=== PATIENT | female | born 1960 | race Caucasian/White ===

== ENCOUNTER 2016-12-12 10:27 | Inpatient (IN) ==
[2016-12-12] MEDS ORDERED: ONDANSETRON 4 MG/2 ML VIAL IV PRN ×2 (11:00→15:23)
[2016-12-12] MEDS ORDERED: METOPROLOL TARTRATE 25 MG TABLET PO STA (11:00)
[2016-12-12] MEDS ORDERED: NITROGLYCERIN SL 0.4 MG TABLET SL PRN (11:00)
[2016-12-12] MEDS ORDERED: NITROGLYCERIN 2% OINT 1 INCH/GM PACK TOP STA (11:00)
[2016-12-12] MEDS ORDERED: MORPHINE 2 MG/1 ML SYRINGE IV PRN (11:00)
[2016-12-12] MEDS ORDERED: ENOXAPARIN 100 MG/ML SYRINGE SUBCUT STA (11:00)
[2016-12-12] MEDS ORDERED: ASPIRIN 325 MG TABLET PO STA (11:00)
--- NOTE | 2016-12-12 11:04 | EKG Report ---
Stationary ECG Study [facility] ER Test Date: 12/12/2016 10:36:28 AM Pat Name: DAVID BLACK Department: Room: Gender: F [employer] Hand: : 1960 Requested by: Ricky Esparza Order Number: [id number] Reading MD: ANISA SOTO Intervals [place] Rate: 83 P: 35 FL: 166 QRS: 51 QRSD: 110 T: 21 QT: 398 QTc: 437 Interpretive Statements SINUS RHYTHM T WAVE ABNORMALITY, POSSIBLE LATERAL ISCHEMIA Electronically Signed On 12-13-16 16:06:52 CDT by ANISA SOTO [email or web address]
[2016-12-12] MEDS ORDERED: ONDANSETRON 4 MG/2 ML VIAL ONE (11:15)
[2016-12-12] MEDS ORDERED: METOPROLOL TARTRATE 25 MG TABLET ONE (11:15)
[2016-12-12] MEDS ORDERED: ENOXAPARIN 100 MG/ML SYRINGE SUBCUT ONE (11:15)
[2016-12-12] MEDS ORDERED: NITROGLYCERIN 2% OINT 1 INCH/GM PACK TOP ONE (11:15)
[2016-12-12] MEDS ORDERED: MORPHINE 2 MG/1 ML SYRINGE ONE (11:15)
[2016-12-12 11:19] LABS: Basophils # 0.1 10*3/uL (0.0-0.2); Basophils % 0.6 % (0.0-0.8); Eosinophils # 0.1 10*3/uL (0.0-0.87); Eosinophils % 1.3 % (0.00-10.9); Hematocrit 37.8 VOL% (35.7-47.0); Hemoglobin 12.8 GM/DL (12.0-16.0); Immature Granulocytes % 0.4 %; Immature Granulocytes Absolute 0.04 #; Lymphocytes # 2.3 10*3/uL (1.4-4.0); Lymphocytes % 24.8 % (21.3-54.2); Mean Corpuscular HGB Conc 33.9 GM/DL (32-36); Mean Corpuscular Hemoglobin 32 PG (27-34); Mean Platelet Volume 12.7 FL (9.6-12.0); Monocytes # 0.7 10*3/uL (0.11-0.8); Monocytes % 7.2 % (1.7-12.7); Neutrophils # 6.1 10*3/uL (1.4-7.4); Neutrophils % 65.7 % (38.7-73.9); Platelet Count 196 T/CUMM (130-400); Red Blood Count 3.98 MC/CUMM (3.8-5.5); Red Cell Distribution Width 13.2 % (9.3-17.3); White Blood Count 9.3 T/CUMM (4-12)
--- NOTE | 2016-12-12 11:27 | XRay Report ---
Exam: XR chest 2V Indication: Coronary megaly, chest pain Comparison study: 06/28/2013 chest radiograph Findings: Cardiac silhouette is enlarged, similar to prior. There are minimal patchy perihilar and basilar interstitial airspace opacities are slightly increased from prior. Upper lungs appear clear. Upper lobe pulmonary vasculature is not engorged. There is no pneumothorax. Osseous structures are stable. Impression: Cardiomegaly with perihilar and basilar interstitial and airspace opacities may represent atelectasis although infectious/inflammatory infiltrates and trace pleural effusions are not excluded. PROCEDURE INTERPRETED AT [facility] DEPARTMENT OF RADIOLOGY Final Report Signed by: Jose G Castillo
[2016-12-12 11:29] LABS: INR 0.9; PT Patient Result 9.6 SECS; Partial Thromboplastin Time 26.9 SECS (0-40)
--- NOTE | 2016-12-12 11:33 | Emergency Department Note ---
Megan Joseph Mantricia, am scribing for, and in the presence of, Ricky Fairbanks MD 10:48. Tiki Joseph James D, MD, personally performed the services described in this documentation, ascribed by Kath Guzman in my presence, and it is both accurate and complete . Arrival - Arrival Chief Complaint: Chest Pain Stated Complaint: Chest pain ED Nursing Triage Note: Pt c/o CP and SOB started on Friday while cutting grass and has been worse with exertion since then. Mode of Arrival: Ambulatory Limitations: No Limitations Source: Patient, RN Notes Reviewed - History of Present Illness HPI Narrative: Pt is a 56 y/o white female arriving to ED with c/o chest pain and SOB that onset Friday. She reports that she was outside cutting grass and experienced the pain. Pt states that she cannot walk 10 feet without it feeling like she has ran a mile. Pt currently has no medical problems and is taking no medications. She has a FHx of heart problems .Pt has been taking 4 aspirins a day since she has experienced the pain and has no had any relief. No other complaints were reported to ED. Onset (ago): day(s) Consistency: constant Severity: mild Allergies/Adverse Reactions: Allergies Allergy/AdvReac Type Severity Reaction Status Date / Time something for the shingles??? Allergy RASH Uncoded 12/12/16 10:31 Home Medications: Home Medications Medication Instructions Recorded Confirmed Type Aspirin EC Tab 650 mg PO QAM 12/12/16 12/12/16 History Aspirin EC Tab 650 mg PO QPM 12/12/16 12/12/16 History Review of System - Review of System 12 point system: reviewed and no additional remarkable complaints except as stated - Review of System Constitutional: Absent: chills, diaphoresis, fever Respiratory: Present: other (SOB). Absent: cough Cardiovascular: Present: chest pain, dyspnea on exertion Gastrointestinal: Absent: abdominal pain, nausea, vomiting, diarrhea Musculoskeletal: Absent: arm pain, back pain, leg pain, neck pain Medical,Surgical,& Family Hx - Surgical History Reproductive Surgeries: Surgical HX of;: Hysterectomy, Tubal Ligation - Social History Smoking Status: Never smoker Exam Physical Examination: ADULT: GENERAL: This is a well-nourished, well-developed white female in no apparent distress. VITAL SIGNS: Reviewed HEENT: Head is normocephalic and atraumatic. Pupils are equally round and reactive to light. Extraocular movement are intact. Oropharynx is benign with moist mucous membranes. NECK: Neck is soft and supple without tenderness. There are no masses. There is no lymphadenopathy. LUNGS: Lungs are clear to auscultation bilaterally. Chest rises symmetrically. There is no chest wall tenderness. CV: Heart is regular rate and rhythm without murmurs, rubs, or gallops. ABDOMEN: Abdomen is soft, non-tender to palpation. There are no abnormal masses palpated. There is no organomegaly. Bowel sounds are present and active. SKIN: Skin is warm and dry. No rash. EXTREMITIES: Patient has full range of motion without tenderness. There is no pedal edema. NEUROLOGIC: Awake, alert, and oriented x4. Cranial nerves II through XII are grossly intact. There are no motorsensory deficits. PSYCHIATRIC: Normal affect. Normal mood. Vital Signs: Vital Signs Temperature 97.4 F L 12/12/16 12:22 Pulse Rate 82 12/12/16 12:22 Respiratory Rate 26 H 12/12/16 12:22 Blood Pressure 129/98 12/12/16 12:22 O2 Sat by Pulse Oximetry 99 12/12/16 10:35 Course Course Narrative: Patient was given Lasix, Lovenox, metoprolol, and nitroglycerin paste while in the emergency department. Echocardiogram was obtained. - Consultations Consultation #1: Discussed with hospitalist. Patient will be admitted to their service. Time: 12:42 Results - Labs CBC & BMP: 12/12/16 11:02 12/12/16 11:02 Lab Results: I have reviewed the patients labs Labs: Laboratory Tests 12/12/16 12/12/16 11:02 11:02 Troponin I 0.170 H B-Natriuretic Peptide 509 H - EKG EKG results: interpreted by ERMD - Impressions EKG: Normal sinus rhythm with rate of 83, T-wave inversion laterally consistent with ischemia. normal axis. - Diagnostic Findings Procedure: Chest x-ray: image reviewed by me (Cardiomegaly, minimal increased pulmonary markings bilaterally.) Disposition Clinical Impression: Chest pain, Elevated troponin, Congestive heart failure Case discussed with: patient Disposition: Still a Patient Condition: Stable
[2016-12-12 12:09] LABS: Alanine Aminotransferase 26 U/L (13-56); Albumin 3.6 G/DL (3.4-5.0); Alkaline Phosphatase 77 U/L (45-117); Aspartate Amino Transferase 17 U/L (0-37); Bilirubin,Total < 0.39 MG/DL (0.2-1.0); Blood Urea Nitrogen 17 MG/DL (7-18); Glucose 97 MG/DL (74-106); Osmolality,Calculated 284.1 MOS/KG (273-304); Potassium 4.4 MMOL/L (3.5-5.1); Sodium 142 MMOL/L (136-145); Total Protein 6.8 G/DL (6.4-8.3)
[2016-12-12] MEDS ORDERED: FUROSEMIDE 40 MG/4 ML VIAL IV STA (12:33)
[2016-12-12] MEDS ORDERED: FUROSEMIDE 40 MG/4 ML VIAL ONE (12:44)
[2016-12-12 13:11] LABS: Apearance,Urine CLEAR (Clear); Bilirubin,Urine Negative (Negative); Blood, Urine Small mg/dL (Negative); Glucose,Urine (UA) Negative (Negative); Ketones,Urine 5 mg/dL (Negative); Mucus,Urine Occasional /LPF (Occasional); Nitrite,Urine Negative (Negative); Protein,Urine Negative; RBC,Urine <1 /HPF (0-4); Urine Color Straw (Yellow); Urine Specific Gravity 1.012 (1.001-1.035); Urine Urobilinogen < 2.0 EU/DL (0.2-1.0); WBC,Urine <1 /HPF (0-6)
--- NOTE | 2016-12-12 15:16 | Hospitalist History & Physical ---
Assessment and Plan (1) Chest pain Status: Acute Assessment and plan: serial troponins, consult Cardiology Current Visit: Yes (2) Congestive heart failure Status: Acute Assessment and plan: echo, lasix IV bid Current Visit: Yes (3) JACKIE (obstructive sleep apnea) Status: Acute Assessment and plan: Dr. Alexander consulted Current Visit: Yes History of Present Illness Chief complaint: chest pain History of present illness: Ms. Laird is a 56 year old female arriving to ED with c/o chest pain and SOB that onset Friday. She reports that she was outside cutting grass and experienced chest tightness with associated SOB. No diaphoresis. Pt states that she cannot walk 10 feet without chest tightness. Pt currently has no medical problems and is taking no medications. She has a FHx of heart problems .Pt has been taking 4 aspirins a day since she has experienced the pain and has no had any relief. No other complaints were reported to ED. her troponin was mildly elevated. Patient's EKG has some T-wave inversions in the lateral leads. Patient also reports snoring and feeling tired all the time. This is classic for obstructive sleep apnea. The Nitropaste placed in the ER made her blood pressure little low worsened her headache and I discontinued it. I have called cardiology to see her. Home Medications Medication Instructions Recorded Confirmed Type Aspirin EC Tab 650 mg PO QAM 12/12/16 12/12/16 History Aspirin EC Tab 650 mg PO QPM 12/12/16 12/12/16 History Allergies Allergy/AdvReac Type Severity Reaction Status Date / Time something for the shingles??? Allergy RASH Uncoded 12/12/16 10:31 Medical,Surgical,& Family Hx - Medical History Other: History of: Miscellaneous Medical Problems (Hemorrhoids) - Surgical History Reproductive Surgeries: Surgical HX of;: Hysterectomy, Tubal Ligation - Family History Family History: Reports;: Family Diabetes, Family Heart Disease - Social History Smoking Status: Never smoker Frequency of Alcohol Use: None Type of Drug Use: None Marital Status: Lives With:: Spouse Functional capacity: independent ambulation - Constitutional Constitutional: Present: fatigue, headache(s), weight gain. Absent: fever(s) - EENT Eyes: Absent: blurry vision, diplopia Ears: Absent: decreased hearing, ear discharge Nose, mouth and throat: Present: headache(s). Absent: sore throat - Cardiovascular Cardiovascular: Present: chest pain with activity, dyspnea, dyspnea on exertion , edema. Absent: chest pain at rest - Respiratory Respiratory: Present: dyspnea, dyspnea on exertion, snoring. Absent: wheezing - Gastrointestinal Gastrointestinal: Absent: constipation, diarrhea, nausea, vomiting - Genitourinary Genitourinary: Absent: difficulty urinating, dysuria - Neurological Neurological: Present: headache(s). Absent: syncope - Psychiatric Psychiatric: Present: anxiety, depression - Endocrine Endocrine: Present: fatigue, heat intolerance - Hematologic/Lymphatic Hematologic/Lymphatic: Absent: easy bleeding, easy bruising Exam - Constitutional Vitals: Period Temp Pulse Resp BP Sys/Quach Pulse Ox Last 24 Hr 97.4 F-97.4 F 82-82 26-26 129-129/98-98 99 General appearance: no acute distress, over weight - Head Head exam: Present: normal inspection, normocephalic - Eye Eye exam: Present: EOMI. Absent: scleral icterus Pupils: Present: KAMRON, normal accommodation - ENT ENT exam: Present: normal exam, normal external ear exam - Neck Neck exam: Present: thyromegaly. Absent: lymphadenopathy - Respiratory Respiratory exam: Present: decreased breath sounds. Absent: rhonchi, wheezes - Cardiovascular Cardiovascular exam: Present: regular rate and rhythm. Absent: systolic murmur - GI/Abdominal GI/Abdominal exam: Present: normal bowel sounds, soft. Absent: tenderness - Extremities Exam Extremities exam: Present: normal capillary refill, edema - Neurological Exam Neurological exam: Present: alert, oriented X3, CN II-XII intact, reflexes normal. Absent: motor sensory deficit - Psychiatric Psychiatric exam: Present: anxious, depressed - Skin Skin exam: Present: normal color, warm Results - Labs CBC & BMP: 12/12/16 11:02 12/12/16 11:02 Lab Results: I have reviewed the past 24 hour labs - EKG EKG shows: sinus rhythm (T-wave inversions in lateral leads) - Diagnostic Findings Procedure: Chest x-ray: report reviewed by me (Bilateral effusions)
[2016-12-12] MEDS ORDERED: MAGNESIUM HYDROXIDE SUSP 30 ML UDCUP PO PRN (15:23)
[2016-12-12] MEDS ORDERED: MAGNESIUM SULF RIDER 4 GM in PREMIX 1 EACH IV PRN (15:23)
[2016-12-12] MEDS ORDERED: ZALEPLON 5 MG CAPSULE PO PRN (15:23)
[2016-12-12] MEDS ORDERED: MAGNESIUM SULF RIDER 2 GM in PREMIX 1 EACH IV PRN (15:23)
[2016-12-12] MEDS ORDERED: POTASSIUM CHLORIDE 20 MEQ TABLET PO PRN ×2 (15:23)
[2016-12-12 16:23] LABS: Troponin I Only 0.165 NG/ML (0.00-0.045)
--- NOTE | 2016-12-12 16:27 | Cardiology Consult Note ---
<Yoan Watersen E - Last Filed: 12/12/16 16:31> Assessment and Plan - Time spent with patient Time spent with patient: Greater than 30 minutes (due to assessment, plan, and documentation) (1) Chest pain Status: Acute Assessment and plan: See plan of care listed below. Current Visit: Yes (2) Dyspnea on exertion Status: Acute Assessment and plan: See plan of care listed below. Current Visit: Yes (3) Anxiety Status: Acute Assessment and plan: See plan of care listed below. Current Visit: Yes (4) Congestive heart failure Status: Acute Assessment and plan: See plan of care listed below. Current Visit: Yes (5) JACKIE (obstructive sleep apnea) Status: Acute Assessment and plan: See plan of care listed below. Current Visit: Yes (6) Family history of premature CAD Status: Chronic Assessment and plan: See plan of care listed below. Current Visit: Yes (7) Obesity Status: Chronic Assessment and plan: See plan of care listed below. Current Visit: Yes (8) Elevated troponin Status: Acute Assessment and plan: See plan of care listed below. Current Visit: Yes History of Present Illness - Data of Consult Patient: new to practice Consult date: 12/12/16 Requesting Physician: Anuja Ayala - Consult Narrative Reason for consult: chest pain History of present illness: Ec Teacher: none Ms. Laird is a 56 year old female without a significant cardiac history. She denies a history of hypertension, diabetes, or stroke. She does admit she has had dyslipidemia in the past, but that she has not required medications for this. She does have a significant family history of coronary artery disease including grandmother who had an [place] in her late 60s, father who had an [place] in his 50s, mom who had an [place] in her late 60s with stent placement, and one brother who from an [place] at age 49. Risk factors include: obesity, sedentary lifestyle, family history of premature CAD. She is a lifetime non- smoker. Ms. Santana presented to the emergency room today with complaints of chest pain shortness of breath that began on Friday morning. She reports she was outside cutting grass and experienced midsternal chest heaviness with accompanied shortness of breath. She states it felt like something hit her in the chest. She became exhausted and was unable to finish her yard work. She reports that improved when she was able to rest and be still but she states even walking short distances to the bathroom and back to her living room or bedroom exhausts her. She reports she has felt fatigued for almost a year and some days she does not even feel like getting out of bed. She states that ever since Friday she has had recurring episodes of chest discomfort sometimes accompanied by left arm soreness and left finger paresthesias as well as a tightness beneath her breasts. She has also noticed some posterior neck pain and bilateral lower extremity edema. Her discomfort is nonreproducible to deep breath, palpation, or movement. She does note that her symptoms have improved after administration of medications in the emergency room including: Nitroglycerin, furosemide, metoprolol, Lovenox, and morphine. She is very emotional and anxious upon exam and begins crying when telling me her extensive family history. She denies any recent palpitations, dizziness, lightheadedness , nausea, vomiting, diaphoresis. Upon admission, Ms. Laird is noted to have an elevated BNP of 509, troponin 0.170, creatinine 0.5 with GFR 124, potassium 4.4. Initial EKG shows sinus rhythm with T-wave inversions anterolaterally. H&H stable at 12.8 & 37.8. ASSESSMENT/PLAN: 1. CHEST PAIN - Patient describes symptoms typical for angina. Initial troponin was mildly elevated. Will continue to cycle cardiac biomarkers and follow trend. Will continue to cycle EKGs. Will further discuss cardiac evaluation including stress test vs. heart catheterization with Dr. Harvey and await his recommendations. 2. DYSPNEA ON EXERTION - Suspect this is multifactorial in etiology with respiratory and cardiac components. 3. ANXIETY - Given her emotional state during interview today, I suspect she has at least some mild underlying anxiety. 4. CONGESTIVE HEART FAILURE - Echocardiogram is pending. She has been started on diuresis with IV Lasix BID. She has been started on a beta nima as well as aspirin. 5. SUSPECTED SLEEP DISORDER - Sleep medicine has been consulted. 6. FAMILY HISTORY OF PREMATURE CAD - She does have a significant family history of coronary artery disease including grandmother who had an [place] in her late 60s, father who had an [place] in his 50s, mom who had an [place] in her late 60s with stent placement, and one brother who from an [place] at age 49. 7. OBESITY - Chronic. 8. ELEVATED TROPONIN - Initial troponin was mildly elevated at 0.170 with repeat troponin 0.165. Will continue to follow trend. CC: Curt Christina MD - Home Medications and Allergies Home Medications: Home Medications Medication Instructions Recorded Confirmed Type Aspirin EC Tab 650 mg PO QAM 12/12/16 12/12/16 History Aspirin EC Tab 650 mg PO QPM 12/12/16 12/12/16 History Allergies/Adverse Reactions: Allergies Allergy/AdvReac Type Severity Reaction Status Date / Time something for the shingles??? Allergy RASH Uncoded 12/12/16 10:31 Review of systems: - Constitutional: Present: fatigue, As per HPI. Absent: anorexia, chills, daytime sleepiness, excessive sweating, fever(s), frequent falls, headache(s), increased appetite, lethargy, malaise, night sweats, stops breathing during sleep, weakness, weight gain, weight loss. - EENT Eyes: Present: As per HPI. Absent: blurry vision, diplopia, loss of vision Ears: Present: As per HPI. Absent: decreased hearing, ear discharge, ear pain Nose, mouth and throat: Present: As per HPI. Absent: dysphagia, epistaxis, headache(s), hoarseness, lip swelling, nasal congestion, neck mass, neck pain, sinus pressure, sore throat, throat swelling, tongue swelling, vertigo - Cardiovascular: Present: chest pain with activity, dyspnea on exertion, edema , radiating jaw, neck or arm pain, as per HPI. Absent: chest pain at rest, dyspnea, claudication, diaphoresis, lightheadedness, orthopnea, palpitations, PND - Respiratory: Present: dyspnea on exertion, snoring, as per HPI. Absent: dyspnea, cough, hemoptysis, wheezing, pain on inspiration - Gastrointestinal: Present: As per HPI. Absent: abdominal pain, bloating, change in bowel habits, constipation, diarrhea, heartburn, hematemesis, hematochezia, loose stools, melena, nausea, vomiting - Genitourinary: Present: As per HPI. Absent: difficulty urinating, dysuria, flank pain, hematuria, nocturia, urinary frequency, urinary incontinence - Musculoskeletal: Present: As per HPI. Absent: arthralgias, back pain, joint swelling, limited range of motion, muscle cramps, muscle weakness, myalgias - Neurological: Present: As per HPI. Absent: abnormal gait, abnormal speech, behavioral changes, confusion, convulsions, disequilibrium, dizziness, focal weakness, frequent falls, headache(s), memory loss, numbness, paresthesias, radicular pain, syncope, tremor(s) - Psychiatric: Present: anxiety, As per HPI. Absent: confusion, depression, panic attacks - Endocrine: Present: fatigue, As per HPI. Absent: cold intolerance, heat intolerance, polydipsia, polyphagia - Hematologic/Lymphatic: Present: As per HPI. Absent: easy bleeding, easy bruising, lymphadenopathy Medical,Surgical,& Family Hx - Medical History Psychological: History of: Depression Endocrine: History of: Dyslipidemia Other: History of: Miscellaneous Medical Problems (Hemorrhoids) - Surgical History Reproductive Surgeries: Surgical HX of;: Hysterectomy, Tubal Ligation - Family History Family History: Reports;: Family Diabetes, Family Heart Disease Comment Only: Family Hypertension (Father) - Social History Smoking Status: Never smoker Frequency of Alcohol Use: Rarely Type of Drug Use: None Marital Status: Lives With:: Spouse Functional capacity: independent ambulation Physical Examination Vital Signs Temp Pulse Resp BP Pulse Ox 97.4 F L 82 26 H 129/98 99 12/12/16 10:35 12/12/16 10:35 12/12/16 10:35 12/12/16 10:35 12/12/16 10:35 Exam: General appearance: Pleasant and cooperative. Overweight, no acute distress. - Head Head exam: Present: normal inspection, normocephalic, atraumatic. Absent: hematoma, laceration - Eye Eye exam: Present: EOMI. Absent: conjunctival injection, nystagmus, periorbital swelling, scleral icterus, laceration to eyelids Pupils: Present: PERRL. Absent: constricted, dilated, fixed, irregular, unequal - ENT ENT exam: Present: normal exam, normal external ear exam - Neck Neck exam: Present: normal inspection. Absent: lymphadenopathy, meningismus, tenderness, thyromegaly - Respiratory Respiratory exam: Present: clear to auscultation bilaterally. Absent: accessory muscle use, chest wall tenderness - Cardiovascular Cardiovascular exam: Present: regular rate and rhythm. Absent: carotid bruit, gallop, JVD, rubs - GI/Abdominal GI/Abdominal exam: Present: normal bowel sounds, soft. Absent: distended, firm , guarding, hernia, mass, tenderness, rebound. - Extremities Exam Extremities exam: Present: normal inspection, normal capillary refill. Upper extremity pulses 2+. Lower extremity pulses 2+. Absent: calf tenderness, edema -Musculoskeletal Exam Musculoskeletal: Present: No Fluid Collection, No Pain, Normal Range of Motion - Back Exam Back exam: Present: normal inspection. Absent: muscle spasm, vertebral tenderness - Neurological Exam Neurological exam: Present: alert, oriented X3, grossly intact without resting or essential tremor - Psychiatric Psychiatric exam: Present: normal affect, emotional - Skin Skin exam: Present: normal color, warm, dry, intact. Absent: cyanosis, diaphoretic, rash, urticaria Result/EKG - Labs CBC & BMP: 12/12/16 11:02 12/12/16 11:02 Lab Results: I have reviewed the past 24 hour labs Labs: Laboratory Results - last 24 hr 12/12/16 12/12/16 12/12/16 11:02 11:02 11:02 WBC 9.3 RBC 3.98 Hgb 12.8 Hct 37.8 MCV 95.0 MCH 32 MCHC 33.9 RDW 13.2 Plt Count 196 MPV 12.7 H Neut % (Auto) 65.7 Lymph % (Auto) 24.8 [place] % (Auto) 7.2 Eos % (Auto) 1.3 Baso % (Auto) 0.6 Neut # (Auto) 6.1 Lymph # (Auto) 2.3 [place] # (Auto) 0.7 Eos # (Auto) 0.1 Baso # (Auto) 0.1 Immature Gran % 0.4 Nucleated RBC % 0.0 Immature Gran # 0.04 Nucleated RBCs # 0.00 INR 0.9 PT Patient/Control Mix 9.6 Circ Anticoag PTT 26.9 Sodium 142 Potassium 4.4 Chloride 111 H Carbon Dioxide 22 Anion Gap 13.4 BUN 17 Creatinine 0.50 L GFR Calculation 124 BUN/Creatinine Ratio 34.00 H Glucose 97 Calculated Osmolality 284.1 Calcium 9.0 Total Bilirubin < 0.39 AST 17 ALT 26 Alkaline Phosphatase 77 Total Creatine Kinase CK-MB (CK-2) Troponin I B-Natriuretic Peptide Total Protein 6.8 Albumin 3.6 Globulin 3.2 Albumin/Globulin Ratio 1.1 Urine Color Urine Appearance Urine pH Ur Specific [place] Urine Protein Urine Glucose (UA) Urine Ketones Urine Blood Urine Nitrate Urine Bilirubin Urine Urobilinogen Urine Leukocytes Urine RBC Urine WBC Urine Mucus Ur Culture Indicated? 12/12/16 12/12/16 12/12/16 11:02 11:02 12:50 WBC RBC Hgb Hct MCV MCH MCHC RDW Plt Count MPV Neut % (Auto) Lymph % (Auto) [place] % (Auto) Eos % (Auto) Baso % (Auto) Neut # (Auto) Lymph # (Auto) [place] # (Auto) Eos # (Auto) Baso # (Auto) Immature Gran % Nucleated RBC % Immature Gran # Nucleated RBCs # INR PT Patient/Control Mix Circ Anticoag PTT Sodium Potassium Chloride Carbon Dioxide Anion Gap BUN Creatinine GFR Calculation BUN/Creatinine Ratio Glucose Calculated Osmolality Calcium Total Bilirubin AST ALT Alkaline Phosphatase Total Creatine Kinase CK-MB (CK-2) Troponin I 0.170 H B-Natriuretic Peptide 509 H Total Protein Albumin Globulin Albumin/Globulin Ratio Urine Color Straw Urine Appearance Clear Urine pH 5.0 Ur Specific [place] 1.012 Urine Protein Negative Urine Glucose (UA) Negative Urine Ketones 5 Urine Blood Small Urine Nitrate Negative Urine Bilirubin Negative Urine Urobilinogen < 2.0 H Urine Leukocytes Negative Urine RBC <1 Urine WBC <1 Urine Mucus Occasional Ur Culture Indicated? Not indicated 12/12/16 15:37 WBC RBC Hgb Hct MCV MCH MCHC RDW Plt Count MPV Neut % (Auto) Lymph % (Auto) [place] % (Auto) Eos % (Auto) Baso % (Auto) Neut # (Auto) Lymph # (Auto) [place] # (Auto) Eos # (Auto) Baso # (Auto) Immature Gran % Nucleated RBC % Immature Gran # Nucleated RBCs # INR PT Patient/Control Mix Circ Anticoag PTT Sodium Potassium Chloride Carbon Dioxide Anion Gap BUN Creatinine GFR Calculation BUN/Creatinine Ratio Glucose Calculated Osmolality Calcium Total Bilirubin AST ALT Alkaline Phosphatase Total Creatine Kinase 51 CK-MB (CK-2) 2.7 Troponin I 0.165 H B-Natriuretic Peptide Total Protein Albumin Globulin Albumin/Globulin Ratio Urine Color Urine Appearance Urine pH Ur Specific [place] Urine Protein Urine Glucose (UA) Urine Ketones Urine Blood Urine Nitrate Urine Bilirubin Urine Urobilinogen Urine Leukocytes Urine RBC Urine WBC Urine Mucus Ur Culture Indicated? - EKG EKG results: interpreted by me, sinus rhythm (with ST-T abnormality) <Terry Harvey - Last Filed: 12/12/16 18:31> History of Present Illness - Consult Narrative History of present illness: Ms. Laird is a 56 year old female CC: Curt Christina MD Physical Examination Vital Signs Temp Pulse Resp BP Pulse Ox 97.4 F L 82 26 H 129/98 99 12/12/16 10:35 12/12/16 10:35 12/12/16 10:35 12/12/16 10:35 12/12/16 10:35 Result/EKG - Labs CBC & BMP: 12/12/16 11:02 12/12/16 11:02 Labs: Laboratory Results - last 24 hr 12/12/16 12/12/16 12/12/16 11:02 11:02 11:02 WBC 9.3 RBC 3.98 Hgb 12.8 Hct 37.8 MCV 95.0 MCH 32 MCHC 33.9 RDW 13.2 Plt Count 196 MPV 12.7 H Neut % (Auto) 65.7 Lymph % (Auto) 24.8 [place] % (Auto) 7.2 Eos % (Auto) 1.3 Baso % (Auto) 0.6 Neut # (Auto) 6.1 Lymph # (Auto) 2.3 [place] # (Auto) 0.7 Eos # (Auto) 0.1 Baso # (Auto) 0.1 Immature Gran % 0.4 Nucleated RBC % 0.0 Immature Gran # 0.04 Nucleated RBCs # 0.00 INR 0.9 PT Patient/Control Mix 9.6 Circ Anticoag PTT 26.9 Sodium 142 Potassium 4.4 Chloride 111 H Carbon Dioxide 22 Anion Gap 13.4 BUN 17 Creatinine 0.50 L GFR Calculation 124 BUN/Creatinine Ratio 34.00 H Glucose 97 Hemoglobin A1c Calculated Osmolality 284.1 Calcium 9.0 Total Bilirubin < 0.39 AST 17 ALT 26 Alkaline Phosphatase 77 Total Creatine Kinase CK-MB (CK-2) Troponin I B-Natriuretic Peptide Total Protein 6.8 Albumin 3.6 Globulin 3.2 Albumin/Globulin Ratio 1.1 Free T4 TSH 3rd Generation Urine Color Urine Appearance Urine pH Ur Specific [place] Urine Protein Urine Glucose (UA) Urine Ketones Urine Blood Urine Nitrate Urine Bilirubin Urine Urobilinogen Urine Leukocytes Urine RBC Urine WBC Urine Mucus Ur Culture Indicated? 12/12/16 12/12/16 12/12/16 11:02 11:02 12:50 WBC RBC Hgb Hct MCV MCH MCHC RDW Plt Count MPV Neut % (Auto) Lymph % (Auto) [place] % (Auto) Eos % (Auto) Baso % (Auto) Neut # (Auto) Lymph # (Auto) [place] # (Auto) Eos # (Auto) Baso # (Auto) Immature Gran % Nucleated RBC % Immature Gran # Nucleated RBCs # INR PT Patient/Control Mix Circ Anticoag PTT Sodium Potassium Chloride Carbon Dioxide Anion Gap BUN Creatinine GFR Calculation BUN/Creatinine Ratio Glucose Hemoglobin A1c Calculated Osmolality Calcium Total Bilirubin AST ALT Alkaline Phosphatase Total Creatine Kinase CK-MB (CK-2) Troponin I 0.170 H B-Natriuretic Peptide 509 H Total Protein Albumin Globulin Albumin/Globulin Ratio Free T4 TSH 3rd Generation Urine Color Straw Urine Appearance Clear Urine pH 5.0 Ur Specific [place] 1.012 Urine Protein Negative Urine Glucose (UA) Negative Urine Ketones 5 Urine Blood Small Urine Nitrate Negative Urine Bilirubin Negative Urine Urobilinogen < 2.0 H Urine Leukocytes Negative Urine RBC <1 Urine WBC <1 Urine Mucus Occasional Ur Culture Indicated? Not indicated 12/12/16 12/12/16 12/12/16 15:37 16:37 16:37 WBC RBC Hgb Hct MCV MCH MCHC RDW Plt Count MPV Neut % (Auto) Lymph % (Auto) [place] % (Auto) Eos % (Auto) Baso % (Auto) Neut # (Auto) Lymph # (Auto) [place] # (Auto) Eos # (Auto) Baso # (Auto) Immature Gran % Nucleated RBC % Immature Gran # Nucleated RBCs # INR PT Patient/Control Mix Circ Anticoag PTT Sodium Potassium Chloride Carbon Dioxide Anion Gap BUN Creatinine GFR Calculation BUN/Creatinine Ratio Glucose Hemoglobin A1c 5.6 Calculated Osmolality Calcium Total Bilirubin AST ALT Alkaline Phosphatase Total Creatine Kinase 51 CK-MB (CK-2) 2.7 Troponin I 0.165 H B-Natriuretic Peptide Total Protein Albumin Globulin Albumin/Globulin Ratio Free T4 0.85 TSH 3rd Generation Urine Color Urine Appearance Urine pH Ur Specific [place] Urine Protein Urine Glucose (UA) Urine Ketones Urine Blood Urine Nitrate Urine Bilirubin Urine Urobilinogen Urine Leukocytes Urine RBC Urine WBC Urine Mucus Ur Culture Indicated? 12/12/16 16:37 WBC RBC Hgb Hct MCV MCH MCHC RDW Plt Count MPV Neut % (Auto) Lymph % (Auto) [place] % (Auto) Eos % (Auto) Baso % (Auto) Neut # (Auto) Lymph # (Auto) [place] # (Auto) Eos # (Auto) Baso # (Auto) Immature Gran % Nucleated RBC % Immature Gran # Nucleated RBCs # INR PT Patient/Control Mix Circ Anticoag PTT Sodium Potassium Chloride Carbon Dioxide Anion Gap BUN Creatinine GFR Calculation BUN/Creatinine Ratio Glucose Hemoglobin A1c Calculated Osmolality Calcium Total Bilirubin AST ALT Alkaline Phosphatase Total Creatine Kinase CK-MB (CK-2) Troponin I B-Natriuretic Peptide Total Protein Albumin Globulin Albumin/Globulin Ratio Free T4 TSH 3rd Generation 3.220 Urine Color Urine Appearance Urine pH Ur Specific [place] Urine Protein Urine Glucose (UA) Urine Ketones Urine Blood Urine Nitrate Urine Bilirubin Urine Urobilinogen Urine Leukocytes Urine RBC Urine WBC Urine Mucus Ur Culture Indicated?
--- NOTE | 2016-12-12 17:33 | ECHO Report ---
Tomer Laird Exam Date: 12/12/2016 13:11 Referring Physician: Technologist: Elisha Marie Age: 56 Ht (in): 66 Wt (lb): 202 Gender: F Exam Location: [facility] Echo Indications: chest pain, SOB BP: 129 / 98 HR: Rhythm: Sinus Technical Quality: IMPRESSIONS Technically difficult study 1-2+ left atrial enlargement Mildly reduced overall LV systolic function with severe apical hypokinesis; estimated ejection fraction is 40% Probable mild left ventricular outflow tract gradient with peak gradient of 22 mmHg from discrete proximal septal thickening. MEASUREMENTS (Male / Female) Normal Values 2D ECHO LV Diastolic Diameter PLAX 4.9 cm 4.2 - 5.9 / 3.9 - 5.3 cm LV Systolic Diameter PLAX 3.9 cm LV Fractional Shortening PLAX 20.3 % IVS Diastolic Thickness 1.6 cm 0.6 - 1.0 / 0.6 - 0.9 cm LVPW Diastolic Thickness 1.3 cm 0.6 - 1.0 / 0.6 - 0.9 cm Aortic Root Diameter 2.7 cm LA Systolic Diameter LX 4.4 cm 3.0 - 4.0 / 2.7 - 3.8 cm FINDINGS Left Ventricle Normal left ventricular cavity size. Mild concentric left ventricular hypertrophy with diastolic dysfunction. Left ventricular ejection fraction is estimated a Right Ventricle Normal right ventricular size. Right Atrium Normal right atrial size. Left Atrium The left atrium is mildly enlarged. Mitral Valve Morphologically normal mitral valve. Trace mitral valve regurgitation. Aortic Valve The aortic valve is trileaflet, delicate and has normal motion. Tricuspid Valve Morphologically normal tricuspid valve. Pulmonic Valve Morphologically normal pulmonic valve. Pericardium No pericardial effusion. Aorta Normal size aortic root and proximal ascending aorta. Terry Harvey (Electronically Signed) Final Date: 12 December 2016 17:32
[2016-12-12] MEDS: ATORVASTATIN 80 MG TABLET PO SCH (20:51)
[2016-12-12] MEDS: METOPROLOL TARTRATE 25 MG TABLET PO SCH (20:51)
[2016-12-12] MEDS ORDERED: ATORVASTATIN 20 MG TABLET PO SCH (21:00)
[2016-12-12] MEDS: ACETAMINOPHEN 325 MG TABLET PO PRN (22:08)
[2016-12-12 23:02] LABS: Troponin I Only 0.141 NG/ML (0.00-0.045)
[2016-12-13 05:45] LABS: Basophils # 0.1 10*3/uL (0.0-0.2); Basophils % 1.4 % (0.0-0.8); Eosinophils # 0.2 10*3/uL (0.0-0.87); Eosinophils % 2.8 % (0.00-10.9); Hemoglobin 12.6 GM/DL (12.0-16.0); Immature Granulocytes % 0.5 %; Immature Granulocytes Absolute 0.04 #; Lymphocytes # 2.9 10*3/uL (1.4-4.0); Lymphocytes % 36.9 % (21.3-54.2); Mean Corpuscular HGB Conc 31.5 GM/DL (32-36); Mean Corpuscular Hemoglobin 32 PG (27-34); Monocytes # 0.8 10*3/uL (0.11-0.8); Monocytes % 10.4 % (1.7-12.7); Neutrophils # 3.8 10*3/uL (1.4-7.4); Platelet Count 178 T/CUMM (130-400); Red Cell Distribution Width 13.7 % (9.3-17.3); White Blood Count 7.9 T/CUMM (4-12)
[2016-12-13 06:22] LABS: Albumin 3.4 G/DL (3.4-5.0); Bilirubin,Total 0.4 MG/DL (0.2-1.0); Calcium 8.9 MG/DL (8.5-10.1); Osmolality,Calculated 280.4 MOS/KG (273-304); Potassium 4.6 MMOL/L (3.5-5.1); Total Protein 6.4 G/DL (6.4-8.3)
[2016-12-13 06:40] LABS: Risk Ratio 3.89
[2016-12-13 06:41] LABS: Troponin I Only 0.098 NG/ML (0.00-0.045)
[2016-12-13] MEDS ORDERED: diphenhydrAMINE CAP 25 MG CAPSULE PO ONE (07:46)
[2016-12-13] MEDS ORDERED: SODIUM CHLORIDE 0.9% 1,000 ML IV SCH (08:00)
[2016-12-13] MEDS ORDERED: FUROSEMIDE 40 MG/4 ML VIAL IV SCH (08:00)
[2016-12-13] MEDS ORDERED: DIAZEPAM 5 MG TABLET PO ONE (08:08)
--- NOTE | 2016-12-13 08:26 | Sleep Medicine Consult ---
Assessment and Plan (1) JACKIE (obstructive sleep apnea) Status: Acute Assessment and plan: It is certainly possible that this patient could have sleep apnea based on her history of loud snoring and chronic fatigue. She does need sleep evaluation at some point. She does not have insurance and if we can get HST done, that would be the most cost effective method of initial evaluation. Thank you for this consult and the opportunity to participate in her care. Current Visit: Yes (2) Obesity Status: Chronic Assessment and plan: This patient does have a serum bicarb that is 34. It may be worthwhile to obtain an arterial blood gas just to see if she is a CO2 retainer. Current Visit: Yes History of Present Illness Chief complaint: Sleep apnea History of present illness: Ms. Laird is a 56 year old female admitted with chest pain. She began having chest pain while mowing her yard on Friday and her discomfort continued into the week. She has had significant fatigue over the past several weeks. She usually retires about 2 AM and sleeps until 9 or 10. She has been so tired recently, that she has been going to bed at 9 PM. She snores loudly and sleeps in her own bedroom independent from her . She has never been told that she stops breathing during her sleep and denies ever awakening from sleep short of breath. She does have nocturia with 2-3 episodes nightly. She does have restlessness of her legs and discomfort of her legs that disturb her sleep. She has a stop bang score of 4 and an [place] sleepiness score of 4. Home Medications Medication Instructions Recorded Confirmed Type Aspirin EC Tab 650 mg PO QAM 12/12/16 12/12/16 History Aspirin EC Tab 650 mg PO QPM 12/12/16 12/12/16 History Allergies Allergy/AdvReac Type Severity Reaction Status Date / Time something for the shingles??? Allergy RASH Uncoded 12/12/16 10:31 Review of systems: Otherwise unremarkable from a sleep medicine standpoint. Exam (Pulmonay) H&P - Constitutional Vitals: Period Temp Pulse Resp BP Sys/Quach Pulse Ox Last 24 Hr 96.6 F-98.8 F 59-82 16-26 93-129/56-98 93-99 Exam: She is alert and responsive in no acute distress. Pupils equal round reactive to light and accommodation. Extraocular movements intact. Oropharynx with a class III Mallampati exam. Heavy palate and uvula. Neck supple without adenopathy. No supraclavicular adenopathy is noted. Chest with symmetrical breath sounds without focal wheeze, rhonchi, or rales. Cardiac exam reveals a regular rhythm without murmur or gallop. Abdomen soft nontender without palpable hepatosplenomegaly or mass. Extremities are without clubbing, cyanosis , or edema. Neurologically, she is grossly intact. She moves all extremities with good strength. Medical,Surgical,& Family Hx - Medical History Psychological: History of: Depression Endocrine: History of: Dyslipidemia Other: History of: Miscellaneous Medical Problems (Hemorrhoids) - Surgical History Reproductive Surgeries: Surgical HX of;: Hysterectomy, Tubal Ligation - Family History Family History: Reports;: Family Diabetes, Family Heart Disease Comment Only: Family Hypertension (Father) - Social History Smoking Status: Never smoker Frequency of Alcohol Use: Rarely Type of Drug Use: None Results - Labs CBC & BMP: 12/13/16 04:21 12/13/16 04:21 Labs: TSH is within normal limits but the upper limits of normal. Troponins are elevated and serum bicarb is elevated which would suggest the possibility of an element of possible obesity hypoventilation.
[2016-12-13] MEDS: METOPROLOL TARTRATE 25 MG TABLET PO SCH ×2 (08:28→21:07)
[2016-12-13] MEDS ORDERED: ENOXAPARIN 40 MG/0.4 ML SYRINGE SUBCUT SCH (09:00)
[2016-12-13] MEDS ORDERED: ASPIRIN EC 325 MG TABLET PO SCH (09:00)
[2016-12-13] MEDS ORDERED: NITROGLYCERIN DRIP 50 MG/250 ML BOTTLE IV ONE (09:19)
[2016-12-13] MEDS ORDERED: HYDROmorphone 2 MG/1 ML VIAL ONE (09:19)
[2016-12-13] MEDS ORDERED: MIDAZOLAM 2 MG/2 ML VIAL ONE (09:25)
[2016-12-13] MEDS ORDERED: VERAPAMIL 5 MG/2 ML VIAL ONE (09:25)
[2016-12-13] MEDS ORDERED: ENOXAPARIN 60 MG/0.6 ML SYRINGE ONE (09:44)
[2016-12-13] MEDS ORDERED: TICAGRELOR 90 MG TABLET ONE (10:03)
--- NOTE | 2016-12-13 10:17 | Cardiac Catheterization ---
Date of Procedure:: 12/13/16 Post-op diagnosis: same Procedure: Procedure performed: 1. Left heart catheterization 2. Coronary angiography 3. Left angiography 4. Angioplasty of ostial diagonal lesion with chocolate focal force balloon ( 2.5 x 15) 5. Stenting of ostial diagonal lesion with 2.5 x 8 Synergy drug-eluting stent 6. Right femoral arteriotomy closed with Angio-Seal device Brief clinical summary: Ms. Laird presented with classic accelerating angina and minor elevation of troponin with apical wall motion normality on echocardiogram suggestive of non-STEMI. Description of procedure: After obtaining informed consent, the right radial artery was prepped and draped in usual sterile fashion. I was unable to access her right radial artery partially due to weak pulse. I decided to be best to change to the right groin, so it was prepped and draped in the usual sterile fashion. Next a short 6 Ivorian sheath was placed in the right femoral artery using a modified Seldinger technique, after the patient received IV sedation and local anesthetic. Next a JL4 catheter was advanced over a guidewire under fluoroscopic guidance, and was engaged to the left coronary artery after which angiography was performed in multiple views. This was then removed over a wire , and a JR4 catheter was advanced in similar fashion, and was engaged to the right coronary artery after which angiography was performed in multiple views. Next a bent pigtail catheter was advanced into the left ventricle, where hemodynamic measurements were obtained, and left ventriculography was performed. An angiogram of the sheath showed that it was inserted in the right common femoral artery in a vessel suitable for closure. Percutaneous coronary mention was then performed as described below. After intervention, hemostasis was obtained with Angio-Seal device with no residual bleeding. 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 Percutaneous coronary intervention: The patient by the Dredge Engineer on aspirin. We gave her 0.6 mg/kg of IV Lovenox prior to procedure. She was then given a loading dose of Brilinta on the table. After this and EBU 3.5 guiding cath was advanced engaged left coronary artery which provided fair support. Next a choice extra-support wire was advanced to the diagonal with little difficulty. After this a 2.5 x 15 chocolate focal force balloon was advanced across the ostial lesion was dilated to below nominal pressures. Subsequent angiogram showed 90% residual stenosis. Therefore I readvanced it and dilated to above nominal pressures with only slight improvement. Therefore the balloon was removed and a pro-water wire was advanced in the distal LAD with little difficulty. After this a 2.5 x 8 Synergy stent was advanced to the ostium of the diagonal was deployed to nominal pressures with excellent angiographic result. The patient tolerated the procedure well. Coronary angiography: Left main coronary is normal development free disease per left introducing arteries average caliber wraps around the apex. There is an average caliber first diagonal as well as a large an average second diagonal branch with a discrete ostial 95% stenosis. There is 30-40% proximal LAD disease. Circumflex gives off a high long average caliber OM1 branch with a 60 % proximal stenosis. There is a thin second obtuse marginal. Right quires a dominant vessel is of average caliber. He gives off a slightly thinner than average but fairly long PDA and posterolateral branches. Left ventricular LV: Left ventricle is approximately normal in size with mild to moderately reduced ejection fraction overall with moderate to large area of severe apical akinesis. He has been ejection fraction is 35-40%. Impression: 1. Mild to moderately reduced LV systolic function with ejection fraction estimated to be 35-40% with moderate to large area of apical akinesis 2. Right dominant system 3. Coronary artery disease as described above including but not limited to: A. 95% discrete ostial stenosis of the second diagonal (large branch) B. 60% proximal OM1 stenosis C. Mild irregularities the right coronary artery only 4. Status post angioplasty and stenting of ostial second diagonal lesion with 2.5 x 8 Synergy stent with excellent result Recommendation discussion: Given these findings I believe we achieved very good result cart distending the spine was ostial second diagonal which I believe is the culprit for her area of apical akinesis. She will need to stay on dual antiplatelet therapy for at least 6-12 months. We will continue low-dose beta-nima and add low-dose IVAN inhibitor if tolerated. She is currently having borderline hypotension. I will give her IV hydration to reduce her risk of JOB. Anesthesia: minimal conscious sedation Surgeon / Physician: Terry Harvey Industrial Management Teacher: other Estimated blood loss: minimal Specimens: none sent Condition: stable Disposition: ICU/CCU - Medications / Follow-up
--- NOTE | 2016-12-13 10:39 | EKG Report ---
Stationary ECG Study [facility] Test Date: 12/13/2016 10:40 AM Pat Name: DAVID BLACK Department: Room: 122 Gender: F Cork Grinder: GAMAL : 1960 Requested by: Terry Steven Order Number: [id number] Reading MD: JAYLEN DE DIOS Intervals [place] Rate: 60 P: 47 NV: 175 QRS: 48 QRSD: 118 T: 62 QT: 475 QTc: 475 Interpretive Statements SINUS RHYTHM at 60 bpm MODERATE INTRAVENTRICULAR CONDUCTION DELAY MODERATE T-WAVE ABNORMALITY, CONSIDER ANTEROLATERAL ISCHEMIA Electronically Signed On 12-14-16 12:17:00 CDT by JAYLEN DE DIOS [email or web address]
[2016-12-13 11:25] LABS: Troponin I Only 0.073 NG/ML (0.00-0.045)
[2016-12-13] MEDS: ASPIRIN EC 81 MG TABLET PO SCH (11:33)
[2016-12-13] MEDS: ACETAMINOPHEN 325 MG TABLET PO PRN (11:36)
[2016-12-13] MEDS: LISINOPRIL 2.5 MG TABLET PO SCH (13:39)
[2016-12-13] MEDS ORDERED: HYDROmorphone 2 MG/1 ML VIAL IV ONE (14:46)
--- NOTE | 2016-12-13 15:15 | Hospitalist Progress Note ---
Assessment and Plan (1) NSTEMI (non-ST elevated myocardial infarction) Status: Acute Assessment and plan: s/p heart cath 95% obstruction of the diagonal which was stented. She has 60% obstruction of the proximal OM with an EF of 35% Current Visit: Yes (2) Congestive heart failure Status: Acute Assessment and plan: Acute systolic and diastolic congestive heart failure, will restart lasix when okay with cardiology Current Visit: Yes (3) JACKIE (obstructive sleep apnea) Status: Acute Assessment and plan: Dr. Alexander consulted and recommends hst Current Visit: Yes Hospitalist: Subjective Interval history: Patient went for heart cath today. She was very anxious prior to this event. Exam - Constitutional Vitals: Period Temp Pulse Resp BP Sys/Quach Pulse Ox Last 24 Hr 96.6 F-98.8 F 58-82 16-23 91-120/56-76 93-100 Exam: Heart Rate-[RRR] Lungs-[CTAB] GI-[+bs soft, NT] Ext-[1+ edema] Neuro [Motor 5/5], [alert and oriented times 3] psych [anxious mood and affect] General [no acute distress] Results - Labs CBC & BMP: 12/13/16 04:21 12/13/16 04:21 Lab Results: I have reviewed the past 24 hour labs - Diagnostic Findings Procedure: Ultrasound: report reviewed by me (Ejection fraction of 40% with 1-2 + left atrial enlargement and mild concentric LVH with diastolic dysfunction) Specialty Discharge - Follow Up or Referrals
[2016-12-13] MEDS: ATORVASTATIN 80 MG TABLET PO SCH (21:07)
[2016-12-14] MEDS: ACETAMINOPHEN 325 MG TABLET PO PRN ×2 (01:10→10:10)
[2016-12-14 05:26] LABS: Calcium 8.7 MG/DL (8.5-10.1); Magnesium 2.5 MG/DL (1.8-2.4); Osmolality,Calculated 281.3 MOS/KG (273-304); Potassium 5.1 MMOL/L (3.5-5.1)
[2016-12-14 05:27] LABS: Basophils # 0.1 10*3/uL (0.0-0.2); Basophils % 0.7 % (0.0-0.8); Eosinophils # 0.1 10*3/uL (0.0-0.87); Eosinophils % 0.8 % (0.00-10.9); Hematocrit 38.6 VOL% (35.7-47.0); Hemoglobin 12.1 GM/DL (12.0-16.0); Immature Granulocytes % 0.8 %; Immature Granulocytes Absolute 0.08 #; Lymphocytes # 1.6 10*3/uL (1.4-4.0); Lymphocytes % 16.4 % (21.3-54.2); Mean Corpuscular HGB Conc 31.3 GM/DL (32-36); Mean Corpuscular Hemoglobin 32 PG (27-34); Mean Corpuscular Volume 101.8 FL (87-102); Mean Platelet Volume 12.7 FL (9.6-12.0); Monocytes # 0.7 10*3/uL (0.11-0.8); Monocytes % 6.9 % (1.7-12.7); Neutrophils # 7.3 10*3/uL (1.4-7.4); Neutrophils % 74.4 % (38.7-73.9); Platelet Count 176 T/CUMM (130-400); Red Blood Count 3.79 MC/CUMM (3.8-5.5); Red Cell Distribution Width 13.5 % (9.3-17.3); White Blood Count 9.8 T/CUMM (4-12)
[2016-12-14 05:56] LABS: Troponin I Only 0.087 NG/ML (0.00-0.045)
[2016-12-14] MEDS ORDERED: FUROSEMIDE 20 MG/2 ML VIAL IV ONE (07:33)
--- NOTE | 2016-12-14 07:36 | EKG Report ---
Stationary ECG Study [facility] Test Date: 12/14/2016 7:38:29 AM Pat Name: DAVID BLACK Department: Room: 122 Gender: F Patient Scheduling Manager: : 1960 Requested by: Terry Steven Order Number: [id number] Reading MD: GERALDO CORONADO Intervals [place] Rate: 62 P: 60 [place]: 179 QRS: 76 QRSD: 112 T: 249 QT: 489 QTc: 493 Interpretive Statements NORMAL SINUS RHYTHM ST DEVIATION AND MODERATE T-WAVE ABNORMALITY Electronically Signed On 12-16-16 17:58:57 CDT by GERALDO CORONADO [email or web address]
--- NOTE | 2016-12-14 07:38 | Discharge Summary ---
<Sinan Velazquez - Last Filed: 12/14/16 08:22> Hospital Course - Hospital Course Hospital Course: Ms. Laird is a 56-year-old female patient presents to the ED on 12/12 with complaints of chest pain shortness of breath started Friday. Patient reported that she was outside cutting grass and she began to experience chest tightness with associated shortness of breath. In ED patient was found to have a mildly elevated troponin (0.170) and EKG which shows some T-wave inversions in the lateral leads. She also had elevated BNP of 509 and evidence of acute systolic and diastolic congestive heart failure. Patient was admitted to the hospitalist service for further evaluation and treatment. Dr. Harvey was consulted from Cardiology and performed a left heart catheterization on 12/13. Patient had mild to moderately reduced LV function with EF of 35-40% with moderate to large area of apical akinesis. Patient had 95% discrete ostial stenosis of the second diagonal (large branch), 60% proximal OM1 stenosis, and a stent was placed to the ostial diagonal lesion. Pt. started to remain on dual antiplatelet therapy for at least 6-12 months patient was also continued on low dose beta-nima. Sleep medicine was consulted to evaluate patient based on symptoms that she gave that were classic for obstructive sleep apnea. An HST was performed last night and she will follow up with Dr. Alexander in 1-2 weeks. Today patient is stable her cardiac enzymes continue to decrease. Shed will be discharged home to follow up with Dr. Harvey, Dr. Alexander and her pmd. Patient seen and examined. Hospital course reviewed and edited. Specialty Discharge - Follow Up or Referrals Discharge Plan - Discharge Data Disposition: Disch To Home/Self Care - Discharge Medications New Atorvastatin [Lipitor] 80 mg PO BEDTIME #30 tablet Furosemide Tab [Lasix Tab] 20 mg PO BID #60 tablet Lisinopril [Prinivil] 2.5 mg PO DAILY #30 tablet Ticagrelor [Brilinta] 90 mg PO BID #60 tablet Aspirin EC Tab 81 mg PO DAILY tablet Metoprolol Tartrate Tab [Lopressor Tab] 25 mg PO BID #60 tablet Discontinued Aspirin EC Tab 650 mg PO QPM Aspirin EC Tab 650 mg PO QAM - Follow Up or Referral Follow Up: pmd, [Other] - 2 Weeks Ashley Alexander MD [Physician] - 2 Weeks Terry Harvey MD [Physician] - 1 Week - Forms/Instructions Instructions: Left Heart Catheterization (DC), Heart Healthy Diet (GEN), Coronary Intravascular Stent Placement (DC) Exam - Constitutional Vitals: Period Temp Pulse Resp BP Sys/Quach Pulse Ox Last 24 Hr 97.2 F-97.8 F 53-73 10-23 88-126/45-83 97-100 Discharge Results Procedures and tests throughout hospitalization: Pending Orders 12/12/16 15:35 MRSA Surveillence, Inf Control Routine 12/13/16 07:53 CL heart Routine 12/15/16 04:00 Basic Metabolic Panel IN AM Comp Blood Count Auto Diff IN AM Magnesium IN AM 12/16/16 04:00 Basic Metabolic Panel IN AM Comp Blood Count Auto Diff IN AM Magnesium IN AM Labs on day of discharge: Labs from last 24 hours 12/14/16 12/14/16 12/14/16 04:42 04:42 04:42 WBC 9.8 RBC 3.79 L Hgb 12.1 Hct 38.6 MCV 101.8 MCH 32 MCHC 31.3 L RDW 13.5 Plt Count 176 MPV 12.7 H Neut % (Auto) 74.4 H Lymph % (Auto) 16.4 L [place] % (Auto) 6.9 Eos % (Auto) 0.8 Baso % (Auto) 0.7 Neut # (Auto) 7.3 Lymph # (Auto) 1.6 [place] # (Auto) 0.7 Eos # (Auto) 0.1 Baso # (Auto) 0.1 Immature Gran % 0.8 Nucleated RBC % 0.0 Immature Gran # 0.08 Nucleated RBCs # 0.00 Sodium 141 Potassium 5.1 Chloride 108 H Carbon Dioxide 26 Anion Gap 12.1 BUN 14 Creatinine 0.60 GFR Calculation 118 BUN/Creatinine Ratio 23.00 H Glucose 99 Calculated Osmolality 281.3 Calcium 8.7 Magnesium 2.5 H Total Creatine Kinase 35 CK-MB (CK-2) 1.1 Troponin I 0.087 H 12/13/16 10:34 WBC RBC Hgb Hct MCV MCH MCHC RDW Plt Count MPV Neut % (Auto) Lymph % (Auto) [place] % (Auto) Eos % (Auto) Baso % (Auto) Neut # (Auto) Lymph # (Auto) [place] # (Auto) Eos # (Auto) Baso # (Auto) Immature Gran % Nucleated RBC % Immature Gran # Nucleated RBCs # Sodium Potassium Chloride Carbon Dioxide Anion Gap BUN Creatinine GFR Calculation BUN/Creatinine Ratio Glucose Calculated Osmolality Calcium Magnesium Total Creatine Kinase 38 CK-MB (CK-2) 1.5 Troponin I 0.073 H D Preliminary micro results at discharge 12/12/16 15:35 MRSA Surveillance Culture - Preliminary Nasal Passage - Both Nares (Mrsa screen) No MRSA isolated. DS: Provider Date of admission: 12/12/16 12:46 Primary care physician: . No PCP Attending physician on admission: Curt Christina MD Consults: 12/12/16 15:23 Consult to Physician [CONS] Routine Comment: chest pain Consulting Provider: Terry Harvey Consult to Specialist Group: Cardiology 12/12/16 16:00 Consult to Sleep Center [CONS] Routine Reason for Sleep Center: Sleep Center Physician Consult Comment: jackie 12/13/16 10:02 Consult to Cardiac Rehabilitation [CONS] Routine Reason for Cardiac Rehabilitation: Appt Out Pt Cardiac Rehab Consult Comment: NSTEMI; stent Discharging clinician: Sinan Velazquez NP <Anuja Ayala - Last Filed: 12/14/16 09:29> Hospital Course - Time spent with patient Time with patient DS: Greater than 30 minutes (50 min) Diagnosis - Discharge Diagnosis (1) NSTEMI (non-ST elevated myocardial infarction) Status: Acute (2) Congestive heart failure Status: Acute (3) JACKIE (obstructive sleep apnea) Status: Acute Discharge Plan - Discharge Data Condition at Discharge: Stable Discharge Diet: heart healthy Activity: resume usual activities as tolerated Hygiene: no restrictions Weight Bearing at Discharge: full weight bearing Exam - Constitutional General appearance: no acute distress, over weight - Respiratory Respiratory exam: Present: clear to auscultation bilaterally. Absent: rhonchi, wheezes - Cardiovascular Cardiovascular exam: Present: regular rate and rhythm. Absent: systolic murmur - GI/Abdominal GI/Abdominal exam: Present: normal bowel sounds, soft. Absent: tenderness - Neurological Exam Neurological exam: Present: alert, oriented X3
[2016-12-14] MEDS ORDERED: TICAGRELOR 90 MG TABLET PO SCH (09:00)
[2016-12-14] MEDS ORDERED: FUROSEMIDE 40 MG TABLET PO SCH (09:00)
--- NOTE | 2016-12-14 09:23 | Cardiology Progress Note ---
Cardiology - PN: Subj Interval history: Ms. Laird is a sore back still feels a bit weak. She has not had any chest pain is not having shortness of breath this morning. She has not had any bleeding earlier this morning although she had some groin discomfort earlier. It is a bit tender. Exam (Progress Note) - Constitutional Vitals: Period Temp Pulse Resp BP Sys/Quach Pulse Ox Last 24 Hr 97.2 F-97.8 F 53-73 10-23 88-126/45-83 97-100 General appearance: no acute distress, over weight - Head Head exam: Present: normal inspection, normocephalic, atraumatic - Neck Neck exam: Present: normal inspection - Respiratory Respiratory exam: Present: rales. Absent: wheezes - Cardiovascular Cardiovascular exam: Present: regular rate and rhythm. Absent: diastolic murmur , rubs - GI/Abdominal GI/Abdominal exam: Present: soft. Absent: tenderness - Extremities Exam Extremities exam: Present: other (Right groin is without bruit or hematoma). Absent: edema Result/EKG - Labs CBC & BMP: 12/14/16 04:42 12/14/16 04:42 Labs: Laboratory Results - last 24 hr 12/13/16 12/14/16 12/14/16 10:34 04:42 04:42 WBC 9.8 RBC 3.79 L Hgb 12.1 Hct 38.6 MCV 101.8 MCH 32 MCHC 31.3 L RDW 13.5 Plt Count 176 MPV 12.7 H Neut % (Auto) 74.4 H Lymph % (Auto) 16.4 L [place] % (Auto) 6.9 Eos % (Auto) 0.8 Baso % (Auto) 0.7 Neut # (Auto) 7.3 Lymph # (Auto) 1.6 [place] # (Auto) 0.7 Eos # (Auto) 0.1 Baso # (Auto) 0.1 Immature Gran % 0.8 Nucleated RBC % 0.0 Immature Gran # 0.08 Nucleated RBCs # 0.00 Sodium 141 Potassium 5.1 Chloride 108 H Carbon Dioxide 26 Anion Gap 12.1 BUN 14 Creatinine 0.60 GFR Calculation 118 BUN/Creatinine Ratio 23.00 H Glucose 99 Calculated Osmolality 281.3 Calcium 8.7 Magnesium 2.5 H Total Creatine Kinase 38 CK-MB (CK-2) 1.5 Troponin I 0.073 H D 12/14/16 04:42 WBC RBC Hgb Hct MCV MCH MCHC RDW Plt Count MPV Neut % (Auto) Lymph % (Auto) [place] % (Auto) Eos % (Auto) Baso % (Auto) Neut # (Auto) Lymph # (Auto) [place] # (Auto) Eos # (Auto) Baso # (Auto) Immature Gran % Nucleated RBC % Immature Gran # Nucleated RBCs # Sodium Potassium Chloride Carbon Dioxide Anion Gap BUN Creatinine GFR Calculation BUN/Creatinine Ratio Glucose Calculated Osmolality Calcium Magnesium Total Creatine Kinase 35 CK-MB (CK-2) 1.1 Troponin I 0.087 H Specialty Discharge - Follow Up or Referrals
--- NOTE | 2016-12-14 09:26 | Event Note ---
Current the computer will not allow me to enter diagnoses or my impression and recommendation, so I enter them here: 1. 56-year-old with ischemic cardiomyopathy (EF 35-40% with apical akinesis) likely due to MS about a year ago given her history, but with 95% ostial D2 stenosis successfully stented with 2.5 x 8 drug-eluting stent yesterday. She is doing well other than some sore back and fatigue complaints. 2. Her groin looks good and is being closed with Angio-Seal. I have discussed her need to avoid squatting strain or lifting for the next 6 days. 3. I emphasized her need to take baby aspirin and Brilinta daily without fail. I have asked nursing to give her a free 30 day cards for the Brilinta. 4. Taking her low-dose beta-nima and IVAN inhibitor regularly will be very important for recovery of her's cardiomyopathy. 5. She can be discharged from a cardiac standpoint 6. Follow with me in 1-2 weeks time at [facility]
[2016-12-14] MEDS: ASPIRIN EC 81 MG TABLET PO SCH (09:43)
[2016-12-14] MEDS: LISINOPRIL 2.5 MG TABLET PO SCH (09:43)
[2016-12-14] MEDS: METOPROLOL TARTRATE 25 MG TABLET PO SCH (09:43)
[2016-12-14 14:14] VITALS: BP 103/60
== END 2016-12-14 13:50 | disposition home or self-care (01) | DRG 246 ==
LOC: N.ED 10:27 → N.EDINP 10:27 → OBSVTOIN 12:46 → SUATTDRO 12:46 → N.EDINP 15:10 → N.CC 15:21
PROVIDERS: ADMIT Internal Medicine Infectious Disease; ATTEND Internal Medicine
PROC: CLCCHCL (ICD-10-PCS; 2016-12-13 09:45)

== ENCOUNTER 2022-07-17 02:12 | Inpatient (IN) ==
[2022-07-17] MEDS ORDERED: MORPHINE 2 MG/1 ML SYRINGE IV STA (02:30)
[2022-07-17] MEDS ORDERED: ASPIRIN 325 MG TABLET PO STA (02:30)
[2022-07-17] MEDS ORDERED: methylPREDNISolone SOD SUC 125 MG/2 ML VIAL IV STA (02:30)
[2022-07-17] MEDS ORDERED: ALBUTEROL/IPRATROPIUM 3 ML NEB RESP TX STA (02:30)
[2022-07-17] MEDS ORDERED: ONDANSETRON 4 MG/2 ML VIAL IV STA (02:30)
[2022-07-17] MEDS ORDERED: ALBUTEROL NEB SOLN 5 MG/ML 20 ML/BOTTLE CONT NEB SCH (02:30)
[2022-07-17 03:04] LABS: Basophils # 0.1 10*3/uL (0.0-0.2); Eosinophils # 0.2 10*3/uL (0.0-0.87); Eosinophils % 1.7 % (0.00-10.9); Hematocrit 27.4 VOL% (35.7-47.0); Hemoglobin 8.6 GM/DL (12.0-16.0); Immature Granulocytes % 0.7 %; Immature Granulocytes Absolute 0.08 #; Lymphocytes # 3.6 10*3/uL (1.4-4.0); Lymphocytes % 31.7 % (21.3-54.2); Mean Corpuscular HGB Conc 31.4 GM/DL (32-36); Mean Corpuscular Volume 93.5 FL (87-102); Mean Platelet Volume 11.5 FL (9.6-12.0); Monocytes # 0.9 10*3/uL (0.11-0.8); Monocytes % 7.9 % (1.7-12.7); Platelet Count 280 T/CUMM (130-400); Red Blood Count 2.93 MC/CUMM (3.8-5.5); Red Cell Distribution Width 13.7 % (9.3-17.3); White Blood Count 11.45 T/CUMM (4-12)
[2022-07-17 03:25] LABS: Albumin 3.2 G/DL (3.4-5.0); Bilirubin,Total 0.4 MG/DL (0.20-1.00); Calcium 9.1 MG/DL (8.5-10.1); Osmolality,Calculated 282.3 MOS/KG (273-304); Potassium 3.4 MMOL/L (3.5-5.1); Total Protein 6.4 G/DL (6.4-8.2)
[2022-07-17] MEDS ORDERED: HYDROcod/ACETAMIN 7.5-325 MG/15 ML UDCUP PO STA (03:28)
[2022-07-17] MEDS ORDERED: ENOXAPARIN 100 MG/ML SYRINGE SUBCUT STA (03:39)
[2022-07-17] MEDS ORDERED: MORPHINE 2 MG/1 ML SYRINGE IV PRN (04:31)
[2022-07-17] MEDS ORDERED: ONDANSETRON 4 MG/2 ML VIAL IV PRN (04:31)
[2022-07-17] MEDS: ALBUTEROL 1.25 MG/3 ML NEB RESP TX SCH ×5 (07:35→23:02)
[2022-07-17] MEDS: PANTOPRAZOLE 40 MG TABLET PO SCH (08:54)
[2022-07-17] MEDS ORDERED: ENOXAPARIN 40 MG/0.4 ML SYRINGE SUBCUT SCH (09:00)
[2022-07-17] MEDS: ENOXAPARIN 40 MG/0.4 ML SYRINGE SUBCUT SCH (09:04)
[2022-07-17] MEDS: methylPREDNISolone SOD SUC 125 MG/2 ML VIAL IV SCH ×2 (11:59→18:04)
[2022-07-17] MEDS: BUDESONIDE/FORMOTEROL 160-4.5 INHALER 6 GM INH SCH ×2 (13:35→20:54)
[2022-07-17] MEDS: HYDROcodone/CHLORPHENIRAMINE ER 5 ML UDCUP PO SCH ×2 (13:35→20:55)
[2022-07-17] MEDS: POTASSIUM CHLORIDE 20 MEQ TABLET PO PRN ×2 (14:06→16:32)
[2022-07-17] MEDS ORDERED: MAGNESIUM SULF RIDER 2 GM/50 ML PREMIX IV ONE (15:00)
[2022-07-17] MEDS: carvediloL 6.25 MG TABLET PO SCH (16:32)
[2022-07-17] MEDS: MONTELUKAST 10 MG TABLET PO SCH (20:54)
[2022-07-17] MEDS: ATORVASTATIN 80 MG TABLET PO SCH (20:55)
[2022-07-18] MEDS: methylPREDNISolone SOD SUC 125 MG/2 ML VIAL IV SCH ×4 (00:20→17:13)
[2022-07-18] MEDS: ALBUTEROL 1.25 MG/3 ML NEB RESP TX SCH ×6 (03:15→22:59)
[2022-07-18 06:31] LABS: Basophils # 0.1 10*3/uL (0.0-0.2); Basophils % 0.3 % (0.0-0.8); Hematocrit 26.8 VOL% (35.7-47.0); Hemoglobin 8.1 GM/DL (12.0-16.0); Immature Granulocytes % 1.4 %; Immature Granulocytes Absolute 0.26 #; Lymphocytes # 1.6 10*3/uL (1.4-4.0); Lymphocytes % 8.2 % (21.3-54.2); Mean Corpuscular HGB Conc 30.2 GM/DL (32-36); Mean Corpuscular Volume 96.4 FL (87-102); Mean Platelet Volume 11.7 FL (9.6-12.0); Monocytes # 0.6 10*3/uL (0.11-0.8); Monocytes % 3.3 % (1.7-12.7); Neutrophils % 86.8 % (38.7-73.9); Platelet Count 273 T/CUMM (130-400); Red Blood Count 2.78 MC/CUMM (3.8-5.5); Red Cell Distribution Width 13.8 % (9.3-17.3); White Blood Count 18.89 T/CUMM (4-12)
[2022-07-18 06:46] LABS: Calcium 9.2 MG/DL (8.5-10.1); Osmolality,Calculated 282.5 MOS/KG (273-304); Potassium 4.8 MMOL/L (3.5-5.1)
[2022-07-18 06:49] LABS: Alanine Aminotransferase 17 U/L (13-56); Albumin 3.1 G/DL (3.4-5.0); Alkaline Phosphatase 82 U/L (45-117); Aspartate Amino Transferase 14 U/L (0-37); Bilirubin,Total < 0.39 MG/DL (0.20-1.00); Blood Urea Nitrogen 19 MG/DL (7-18); Calcium 9.1 MG/DL (8.5-10.1); Carbon Dioxide 25 MMOL/L (21-32); Chloride 110 MMOL/L (98-107); Glucose 171 MG/DL (74-106); Osmolality,Calculated 286.3 MOS/KG (273-304); Potassium 5.2 MMOL/L (3.5-5.1); Sodium 141 MMOL/L (136-145); Total Protein 6.3 G/DL (6.4-8.2)
[2022-07-18] MEDS ORDERED: SODIUM CHLORIDE 0.45% 1,000 ML IV SCH (07:30)
[2022-07-18] MEDS: ASPIRIN EC 81 MG TABLET PO SCH (08:02)
[2022-07-18] MEDS: PANTOPRAZOLE 40 MG TABLET PO SCH (08:02)
[2022-07-18] MEDS: CETIRIZINE 10 MG TABLET PO SCH (08:02)
[2022-07-18] MEDS: carvediloL 6.25 MG TABLET PO SCH (08:02)
[2022-07-18] MEDS: ENOXAPARIN 40 MG/0.4 ML SYRINGE SUBCUT SCH (08:03)
[2022-07-18] MEDS: HYDROcodone/CHLORPHENIRAMINE ER 5 ML UDCUP PO SCH ×2 (08:03→20:36)
[2022-07-18] MEDS: BUDESONIDE/FORMOTEROL 160-4.5 INHALER 6 GM INH SCH ×2 (08:03→20:39)
[2022-07-18] MEDS ORDERED: SPIRONOLACTONE 25 MG TABLET PO SCH (09:00)
[2022-07-18] MEDS ORDERED: lisinopriL 5 MG TABLET PO SCH (09:00)
[2022-07-18] MEDS: MONTELUKAST 10 MG TABLET PO SCH (20:36)
[2022-07-18] MEDS: ATORVASTATIN 80 MG TABLET PO SCH (20:36)
[2022-07-18] MEDS: DILTIAZEM CD 120 MG CAPSULE PO SCH (20:37)
[2022-07-18] MEDS ORDERED: METOPROLOL TARTRATE 25 MG TABLET PO SCH (21:00)
[2022-07-19] MEDS: methylPREDNISolone SOD SUC 125 MG/2 ML VIAL IV SCH ×4 (00:24→21:44)
[2022-07-19] MEDS: BENZONATATE 100 MG CAPSULE PO PRN ×2 (00:36→18:09)
[2022-07-19] MEDS: ALBUTEROL 1.25 MG/3 ML NEB RESP TX SCH ×2 (02:44→07:00)
[2022-07-19 06:25] LABS: Osmolality,Calculated 289.3 MOS/KG (273-304); Potassium 4.9 MMOL/L (3.5-5.1)
[2022-07-19] MEDS ORDERED: ALBUTEROL 1.25 MG/3 ML NEB RESP TX PRN (08:58)
[2022-07-19 09:19] LABS: Basophils # 0.1 10*3/uL (0.0-0.2); Basophils % 0.2 % (0.0-0.8); Hematocrit 24.2 VOL% (35.7-47.0); Hemoglobin 7.5 GM/DL (12.0-16.0); Immature Granulocytes % 2.5 %; Immature Granulocytes Absolute 0.55 #; Lymphocytes # 1.1 10*3/uL (1.4-4.0); Lymphocytes % 4.8 % (21.3-54.2); Monocytes # 0.6 10*3/uL (0.11-0.8); Monocytes % 2.8 % (1.7-12.7); NRBC # 0.03 10*3/uL; Neutrophils % 89.7 % (38.7-73.9); Platelet Count 270 T/CUMM (130-400); Red Blood Count 2.52 MC/CUMM (3.8-5.5); White Blood Count 22.11 T/CUMM (4-12)
[2022-07-19] MEDS: ASPIRIN EC 81 MG TABLET PO SCH (09:45)
[2022-07-19] MEDS: CETIRIZINE 10 MG TABLET PO SCH (09:45)
[2022-07-19] MEDS: PANTOPRAZOLE 40 MG TABLET PO SCH (09:45)
[2022-07-19] MEDS: ENOXAPARIN 40 MG/0.4 ML SYRINGE SUBCUT SCH ×2 (09:46→12:53)
[2022-07-19] MEDS: HYDROcodone/CHLORPHENIRAMINE ER 5 ML UDCUP PO SCH ×2 (09:49→21:44)
[2022-07-19 09:50] LABS: Lymphocytes 4 % (20-55); Total Cells Counted 100
[2022-07-19] MEDS: BUDESONIDE/FORMOTEROL 160-4.5 INHALER 6 GM INH SCH ×2 (09:50→21:47)
[2022-07-19 09:51] LABS: Hypochromia Slight; Microcytosis Slight; Platelet Estimate Adequate
[2022-07-19] MEDS: MONTELUKAST 10 MG TABLET PO SCH (21:42)
[2022-07-19] MEDS: DILTIAZEM CD 120 MG CAPSULE PO SCH (21:43)
[2022-07-19] MEDS: ATORVASTATIN 80 MG TABLET PO SCH (21:43)
[2022-07-20] MEDS: methylPREDNISolone SOD SUC 125 MG/2 ML VIAL IV SCH ×2 (03:44→09:29)
[2022-07-20 05:18] LABS: Basophils % 0.2 % (0.0-0.8); Hematocrit 24.5 VOL% (35.7-47.0); Hemoglobin 7.2 GM/DL (12.0-16.0); Immature Granulocytes Absolute 0.52 #; Lymphocytes # 1.2 10*3/uL (1.4-4.0); Lymphocytes % 6.8 % (21.3-54.2); Mean Corpuscular HGB Conc 29.4 GM/DL (32-36); Mean Corpuscular Volume 96.5 FL (87-102); Mean Platelet Volume 11.9 FL (9.6-12.0); Monocytes # 0.5 10*3/uL (0.11-0.8); Monocytes % 2.9 % (1.7-12.7); NRBC # 0.04 10*3/uL; Neutrophils % 87.1 % (38.7-73.9); Platelet Count 252 T/CUMM (130-400); Red Blood Count 2.54 MC/CUMM (3.8-5.5); Red Cell Distribution Width 13.9 % (9.3-17.3); White Blood Count 17.17 T/CUMM (4-12)
[2022-07-20 05:32] LABS: Osmolality,Calculated 281.8 MOS/KG (273-304); Potassium 4.6 MMOL/L (3.5-5.1)
[2022-07-20 05:54] LABS: Band Neutrophils 1 % (0-10); Lymphocytes 3 % (20-55); Metamyelocytes 1 %; Total Cells Counted 100
[2022-07-20 05:55] LABS: Hypochromia Slight; Microcytosis Slight; Ovalocytes Few; Platelet Estimate Normal
[2022-07-20 08:54] LABS: % Iron Saturation 3.2 % (18-50); Ferritin 5.9 ng/mL (8-252)
[2022-07-20 08:56] LABS: Folate 14.32 NG/ML (5.38-24.0)
[2022-07-20] MEDS: PANTOPRAZOLE 40 MG TABLET PO SCH (09:29)
[2022-07-20] MEDS: CETIRIZINE 10 MG TABLET PO SCH (09:29)
[2022-07-20] MEDS: ASPIRIN EC 81 MG TABLET PO SCH (09:29)
[2022-07-20] MEDS: BUDESONIDE/FORMOTEROL 160-4.5 INHALER 6 GM INH SCH ×2 (09:30→20:50)
[2022-07-20] MEDS: HYDROcodone/CHLORPHENIRAMINE ER 5 ML UDCUP PO SCH ×2 (09:30→20:50)
[2022-07-20] MEDS: DOCUSATE SODIUM 100 MG CAPSULE PO SCH ×2 (11:51→20:48)
[2022-07-20] MEDS: FERRIC GLUCONATE COMPLEX 125 MG in SODIUM CHLORIDE 0.9% 100 ML IV SCH (11:52)
[2022-07-20] MEDS: methylPREDNISolone SOD SUC 40 MG/1 ML VIAL IV SCH ×2 (14:34→20:49)
[2022-07-20] MEDS ORDERED: CALCIUM CARBONATE CHEW 500 MG TABLET PO PRN (17:22)
[2022-07-20] MEDS: ATORVASTATIN 80 MG TABLET PO SCH (20:48)
[2022-07-20] MEDS: MONTELUKAST 10 MG TABLET PO SCH (20:48)
[2022-07-20] MEDS: DILTIAZEM CD 120 MG CAPSULE PO SCH (20:48)
[2022-07-21] MEDS: methylPREDNISolone SOD SUC 40 MG/1 ML VIAL IV SCH ×4 (03:53→20:20)
[2022-07-21 05:46] LABS: Basophils % 0.1 % (0.0-0.8); Hematocrit 24.2 VOL% (35.7-47.0); Hemoglobin 7.2 GM/DL (12.0-16.0); Immature Granulocytes % 4.9 %; Immature Granulocytes Absolute 0.73 #; Lymphocytes # 1.1 10*3/uL (1.4-4.0); Lymphocytes % 7.6 % (21.3-54.2); Mean Corpuscular HGB Conc 29.8 GM/DL (32-36); Mean Corpuscular Volume 95.7 FL (87-102); Mean Platelet Volume 11.9 FL (9.6-12.0); Monocytes # 0.7 10*3/uL (0.11-0.8); Monocytes % 4.4 % (1.7-12.7); NRBC # 0.09 10*3/uL; Platelet Count 250 T/CUMM (130-400); Red Blood Count 2.53 MC/CUMM (3.8-5.5); Red Cell Distribution Width 13.7 % (9.3-17.3); White Blood Count 14.91 T/CUMM (4-12)
[2022-07-21 06:02] LABS: Calcium 8.5 MG/DL (8.5-10.1); Osmolality,Calculated 282.7 MOS/KG (273-304); Potassium 4.8 MMOL/L (3.5-5.1)
[2022-07-21 06:10] LABS: Lymphocytes 4 % (20-55); Platelet Estimate Adequate; Total Cells Counted 100
[2022-07-21 06:11] LABS: Hypochromia Slight
[2022-07-21] MEDS ORDERED: MAGNESIUM HYDROXIDE SUSP 30 ML UDCUP PO ONE (08:34)
[2022-07-21] MEDS: PANTOPRAZOLE 40 MG TABLET PO SCH (09:24)
[2022-07-21] MEDS: DOCUSATE SODIUM 100 MG CAPSULE PO SCH ×2 (09:24→20:20)
[2022-07-21] MEDS: CETIRIZINE 10 MG TABLET PO SCH (09:25)
[2022-07-21] MEDS: ASPIRIN EC 81 MG TABLET PO SCH (09:25)
[2022-07-21] MEDS: BUDESONIDE/FORMOTEROL 160-4.5 INHALER 6 GM INH SCH ×2 (09:26→20:20)
[2022-07-21] MEDS: HYDROcodone/CHLORPHENIRAMINE ER 5 ML UDCUP PO SCH ×2 (09:26→20:20)
[2022-07-21] MEDS: BISACODYL 5 MG TABLET PO SCH (09:38)
[2022-07-21] MEDS: FERRIC GLUCONATE COMPLEX 125 MG in SODIUM CHLORIDE 0.9% 100 ML IV SCH (10:20)
[2022-07-21] MEDS: ATORVASTATIN 80 MG TABLET PO SCH (20:20)
[2022-07-21] MEDS: MONTELUKAST 10 MG TABLET PO SCH (20:20)
[2022-07-21] MEDS: DILTIAZEM CD 120 MG CAPSULE PO SCH (20:20)
[2022-07-22] MEDS: methylPREDNISolone SOD SUC 40 MG/1 ML VIAL IV SCH ×4 (02:35→20:10)
[2022-07-22 05:48] LABS: Basophils # 0.1 10*3/uL (0.0-0.2); Basophils % 0.3 % (0.0-0.8); Hematocrit 26.4 VOL% (35.7-47.0); Immature Granulocytes % 6.9 %; Immature Granulocytes Absolute 1.22 #; Lymphocytes # 1.1 10*3/uL (1.4-4.0); Lymphocytes % 6.3 % (21.3-54.2); Mean Corpuscular HGB Conc 30.3 GM/DL (32-36); Mean Corpuscular Volume 96.4 FL (87-102); Mean Platelet Volume 12.1 FL (9.6-12.0); Monocytes # 0.8 10*3/uL (0.11-0.8); Monocytes % 4.6 % (1.7-12.7); NRBC # 0.18 10*3/uL; Neutrophils % 81.9 % (38.7-73.9); Platelet Count 295 T/CUMM (130-400); Red Blood Count 2.74 MC/CUMM (3.8-5.5); Red Cell Distribution Width 13.8 % (9.3-17.3); White Blood Count 17.69 T/CUMM (4-12)
[2022-07-22 06:05] LABS: Calcium 8.8 MG/DL (8.5-10.1); Osmolality,Calculated 279.8 MOS/KG (273-304); Potassium 4.6 MMOL/L (3.5-5.1)
[2022-07-22 06:18] LABS: Lymphocytes 6 % (20-55); Total Cells Counted 100
[2022-07-22 06:19] LABS: Microcytosis Slight; Ovalocytes Slight; Polychromasia Slight
[2022-07-22 06:20] LABS: Hypochromia Slight; Platelet Estimate Normal
[2022-07-22] MEDS ORDERED: LIDOCAINE 2% 20 ML VIAL RESP TX ONE (07:30)
[2022-07-22] MEDS ORDERED: MEPERIDINE 50 MG/1 ML VIAL IM ONE (07:30)
[2022-07-22] MEDS ORDERED: LIDOCAINE 1% 20 ML VIAL MISC INJ ONE (07:30)
[2022-07-22] MEDS ORDERED: LIDOCAINE 2% VISCOUS 100 ML BOTTLE SWISH/SPIT ONE (07:30)
[2022-07-22] MEDS ORDERED: MIDAZOLAM 2 MG/2 ML VIAL IV ONE (07:30)
[2022-07-22] MEDS ORDERED: PROMETHAZINE 25 MG/1 ML VIAL IM ONE (07:30)
[2022-07-22] MEDS: PANTOPRAZOLE 40 MG TABLET PO SCH (11:09)
[2022-07-22] MEDS: CETIRIZINE 10 MG TABLET PO SCH (11:09)
[2022-07-22] MEDS: DOCUSATE SODIUM 100 MG CAPSULE PO SCH ×2 (11:09→20:10)
[2022-07-22] MEDS: BISACODYL 5 MG TABLET PO SCH (11:09)
[2022-07-22] MEDS: ASPIRIN EC 81 MG TABLET PO SCH (11:09)
[2022-07-22] MEDS: HYDROcodone/CHLORPHENIRAMINE ER 5 ML UDCUP PO SCH ×2 (11:10→20:10)
[2022-07-22] MEDS: BUDESONIDE/FORMOTEROL 160-4.5 INHALER 6 GM INH SCH ×2 (11:11→20:10)
[2022-07-22] MEDS: FERRIC GLUCONATE COMPLEX 125 MG in SODIUM CHLORIDE 0.9% 100 ML IV SCH (11:30)
[2022-07-22] MEDS: ATORVASTATIN 80 MG TABLET PO SCH (20:10)
[2022-07-22] MEDS: MONTELUKAST 10 MG TABLET PO SCH (20:10)
[2022-07-22] MEDS: DILTIAZEM CD 120 MG CAPSULE PO SCH (20:10)
[2022-07-23] MEDS: methylPREDNISolone SOD SUC 40 MG/1 ML VIAL IV SCH ×2 (05:55→21:44)
[2022-07-23 06:33] LABS: Basophils # 0.1 10*3/uL (0.0-0.2); Basophils % 0.3 % (0.0-0.8); Hematocrit 27.1 VOL% (35.7-47.0); Immature Granulocytes % 4.9 %; Immature Granulocytes Absolute 1.28 #; Lymphocytes # 1.1 10*3/uL (1.4-4.0); Mean Corpuscular HGB Conc 29.5 GM/DL (32-36); Mean Corpuscular Volume 96.8 FL (87-102); Mean Platelet Volume 12.1 FL (9.6-12.0); Monocytes # 0.9 10*3/uL (0.11-0.8); Monocytes % 3.3 % (1.7-12.7); NRBC # 0.23 10*3/uL; Neutrophils % 87.5 % (38.7-73.9); Platelet Count 291 T/CUMM (130-400); Red Cell Distribution Width 14.1 % (9.3-17.3); White Blood Count 26.06 T/CUMM (4-12)
[2022-07-23 06:58] LABS: Calcium 8.5 MG/DL (8.5-10.1); Osmolality,Calculated 281.7 MOS/KG (273-304); Potassium 4.8 MMOL/L (3.5-5.1)
[2022-07-23 06:59] LABS: Band Neutrophils 1 % (0-10); Hypochromia Slight; Lymphocytes 3 % (20-55); Microcytosis Slight; Nucleated Red Blood Cells 2 /100 WBC (0-5); Platelet Estimate Adequate; Total Cells Counted 100
[2022-07-23] MEDS: FERRIC GLUCONATE COMPLEX 125 MG in SODIUM CHLORIDE 0.9% 100 ML IV SCH (09:43)
[2022-07-23] MEDS: DOCUSATE SODIUM 100 MG CAPSULE PO SCH ×2 (09:43→21:01)
[2022-07-23] MEDS: BUDESONIDE/FORMOTEROL 160-4.5 INHALER 6 GM INH SCH ×2 (09:44→21:01)
[2022-07-23] MEDS: PANTOPRAZOLE 40 MG TABLET PO SCH (09:44)
[2022-07-23] MEDS: CETIRIZINE 10 MG TABLET PO SCH (09:44)
[2022-07-23] MEDS: ASPIRIN EC 81 MG TABLET PO SCH (09:44)
[2022-07-23] MEDS: BISACODYL 5 MG TABLET PO SCH (09:44)
[2022-07-23] MEDS: HYDROcodone/CHLORPHENIRAMINE ER 5 ML UDCUP PO SCH ×2 (09:44→21:01)
[2022-07-23] MEDS: MONTELUKAST 10 MG TABLET PO SCH (21:01)
[2022-07-23] MEDS: DILTIAZEM CD 120 MG CAPSULE PO SCH (21:01)
[2022-07-23] MEDS: ATORVASTATIN 80 MG TABLET PO SCH (21:01)
[2022-07-24 05:04] LABS: Basophils # 0.1 10*3/uL (0.0-0.2); Basophils % 0.4 % (0.0-0.8); Hematocrit 26.8 VOL% (35.7-47.0); Hemoglobin 7.9 GM/DL (12.0-16.0); Immature Granulocytes Absolute 1.54 #; Lymphocytes % 4.6 % (21.3-54.2); Mean Corpuscular HGB Conc 29.5 GM/DL (32-36); Mean Corpuscular Volume 99.6 FL (87-102); Mean Platelet Volume 11.8 FL (9.6-12.0); Monocytes # 0.9 10*3/uL (0.11-0.8); Platelet Count 310 T/CUMM (130-400); Red Blood Count 2.69 MC/CUMM (3.8-5.5); Red Cell Distribution Width 14.4 % (9.3-17.3); White Blood Count 21.93 T/CUMM (4-12)
[2022-07-24 05:26] LABS: Band Neutrophils 2 % (0-10); Lymphocytes 9 % (20-55); Nucleated Red Blood Cells 1 /100 WBC (0-5); Polychromasia Slight; Total Cells Counted 100
[2022-07-24 05:27] LABS: Hypochromia Slight; Microcytosis Slight; Ovalocytes Slight
[2022-07-24 05:28] LABS: Platelet Estimate Normal
[2022-07-24 05:32] LABS: Calcium 8.3 MG/DL (8.5-10.1); Osmolality,Calculated 286.5 MOS/KG (273-304)
[2022-07-24] MEDS: CETIRIZINE 10 MG TABLET PO SCH (09:33)
[2022-07-24] MEDS: methylPREDNISolone SOD SUC 40 MG/1 ML VIAL IV SCH (09:33)
[2022-07-24] MEDS: BUDESONIDE/FORMOTEROL 160-4.5 INHALER 6 GM INH SCH (09:34)
[2022-07-24] MEDS: HYDROcodone/CHLORPHENIRAMINE ER 5 ML UDCUP PO SCH (09:34)
[2022-07-24] MEDS: PANTOPRAZOLE 40 MG TABLET PO SCH (09:34)
[2022-07-24] MEDS: ASPIRIN EC 81 MG TABLET PO SCH (09:34)
[2022-07-24] MEDS: FERRIC GLUCONATE COMPLEX 125 MG in SODIUM CHLORIDE 0.9% 100 ML IV SCH (09:42)
[2022-07-24] MEDS: BISACODYL 5 MG TABLET PO SCH (10:07)
[2022-07-24] MEDS: DOCUSATE SODIUM 100 MG CAPSULE PO SCH (10:07)
[2022-07-24 11:26] VITALS: BP 123/77
[2022-07-24] MEDS ORDERED: POLYETHYLENE GLYCOL POWDER 17 GM PACK PO SCH (15:00)
[2022-07-24] MEDS ORDERED: MAGNESIUM HYDROXIDE SUSP 30 ML UDCUP PO ONE (21:00)
== END 2022-07-24 16:21 | disposition home or self-care (01) | DRG 202 ==
LOC: N.ED 02:12 → N.EDINP 02:12 → N.2E 11:24 → SUATTDRO 07-18 11:34
PROVIDERS: ADMIT Internal Medicine; ATTEND Internal Medicine Nephrology